=== PATIENT | female | born 1970 | race Caucasian/White ===

== ENCOUNTER 2020-10-10 11:53 | Emergency (ER) | payer BC ==
[~2020-10-10 11:53] MED LIST: CLARITIN10 MG PO; CREON DR 36,001 EACH PO; CYCLOBENZAPRINE5 MG PO; DULOXETINE HCL30 MG PO; ENDOCET 5-3251 EACH PO; FLONASE 0.05% N16 GM; FLOVENT DISKU250 MCG INH; IBUPROFEN600 MG PO; IBUPROFEN800 MG PO; MOBIC15 MG PO; NORCO 5-325 TA1 EACH PO; OMEPRAZOLE20 M1 PO; ONDANSETRON ODT4 MG PO; PHENERGAN 12.12.5 M1 PO; PROAIR DIGIHAL90 MCG INH; ROBITUSSIN AC480 ML PO; ZOFRAN ODT 4 MG4 MG SL; ZOFRAN8 MG PO
== END 2020-10-10 16:30 | disposition home or self-care (01) ==
LOC: ER1 11:53
DX: J02.0 Streptococcal pharyngitis (principal); Z20.822 Contact with and (suspected) exposure to COVID-19
CPT/HCPCS: 71045; 87081; 87880; 96372; 99284; J2540; U0002